=== PATIENT | male | born 1970 | race Two or more races ===

== ENCOUNTER 2020-10-16 09:53 | Outpatient (REF) | payer BC, SELFPAY ==
--- NOTE | ~2020-10-16 | XR_ITS ---
EXAMINATION: XR HAND, RIGHT XR HAND, LEFT CLINICAL INFORMATION: Right and left hand pain. COMPARISON: Right hand radiographs dated 02/08/2012 TECHNIQUE: AP, oblique, and lateral views of the right and left hand. FINDINGS: Right hand: No acute fracture or dislocation. Mild joint space narrowing with tiny marginal osteophytes at the 1st carpometacarpal joint as well as at the 3rd metacarpophalangeal joint and scattered throughout the interphalangeal joints. No osseous erosion. No abnormal soft tissue calcification. Left hand: No acute fracture or dislocation. Mild joint space narrowing with tiny marginal osteophytes at the 1st carpometacarpal joint as well as at the 2nd and 3rd metacarpophalangeal joints and scattered throughout the interphalangeal joints. No osseous erosion. No abnormal soft tissue calcification. XR/XR hand RT 2V IMPRESSION: Right hand: Mild degenerative arthritis at the 1st carpometacarpal joint, 3rd metacarpophalangeal joint, and scattered throughout the interphalangeal joints. Left hand: Mild degenerative arthritis at the 1st carpometacarpal joint, 2nd and 3rd metacarpophalangeal joints, and scattered throughout the interphalangeal joints.
--- NOTE | ~2020-10-16 | XR_ITS ---
EXAMINATION: XR HAND, RIGHT XR HAND, LEFT CLINICAL INFORMATION: Right and left hand pain. COMPARISON: Right hand radiographs dated 02/08/2012 TECHNIQUE: AP, oblique, and lateral views of the right and left hand. FINDINGS: Right hand: No acute fracture or dislocation. Mild joint space narrowing with tiny marginal osteophytes at the 1st carpometacarpal joint as well as at the 3rd metacarpophalangeal joint and scattered throughout the interphalangeal joints. No osseous erosion. No abnormal soft tissue calcification. Left hand: No acute fracture or dislocation. Mild joint space narrowing with tiny marginal osteophytes at the 1st carpometacarpal joint as well as at the 2nd and 3rd metacarpophalangeal joints and scattered throughout the interphalangeal joints. No osseous erosion. No abnormal soft tissue calcification. XR/XR hand LT 2V IMPRESSION: Right hand: Mild degenerative arthritis at the 1st carpometacarpal joint, 3rd metacarpophalangeal joint, and scattered throughout the interphalangeal joints. Left hand: Mild degenerative arthritis at the 1st carpometacarpal joint, 2nd and 3rd metacarpophalangeal joints, and scattered throughout the interphalangeal joints.
[2020-10-16 11:00] LABS: MANUAL DIFF FLAG NO
[2020-10-16 11:12] LABS: Basophils Absolute Auto 0.1 X10*3/uL (0.0-0.2); Basophils Percent Auto 0.8 % (0-2); Eosinophils Absolute Auto 0.2 X10*3/uL (0.0-0.4); Eosinophils Percent Auto 2.7 % (0-4); Hematocrit 42.7 % (42-52); Hemoglobin 14.1 g/dl (14.0-18.0); Imm Gran Abs Auto 0.08 X10*3/uL (0.00-0.03); Imm Gran Pct Auto 1.1 % (0.0-0.4); Lymphocytes Absolute Auto 2.9 X10*3/uL (1.2-4.9); Lymphocytes Percent Auto 38.1 % (20-40); Mean Corpuscular Hemoglobin 29.6 pg (27.0-33.0); Mean Corpuscular Volume 89.5 fL (80-98); Mean Platelet Volume 10.5 fL (9.4-12.4); Monocytes Absolute Auto 0.5 X10*3/uL (0.1-1.2); Monocytes Percent Auto 7.1 % (2-11); Neutrophils Absolute Auto 3.8 X10*3/uL (2.0-8.3); Neutrophils Percent Auto 50.2 % (45-73); Platelet Count 312 X10*3/uL (160-400); Red Blood Count 4.77 X10*6/uL (4.60-5.80); Red Cell Distribution Width 12.3 % (11.0-16.0); White Blood Count 7.5 X10*3/uL (4.8-10.8)
[2020-10-16 11:29] LABS: Alanine Aminotransferase 28 U/L (0-40); Albumin Level 4.3 g/dL (3.5-5.0); Alkaline Phosphatase 86 U/L (39-117); Anion Gap 11 (12-20); Aspartate Amino Transferase 18 U/L (5-37); Bilirubin Total 0.9 mg/dL (0.0-1.0); Blood Urea Nitrogen 16 mg/dL (9-16); Calcium 9.1 mg/dL (8.4-10.2); Carbon Dioxide 27 mmol/L (22-29); Chloride 106 mmol/L (96-108); Cholesterol 197 mg/dL; Estimated Glomerular Filt Rate > 60; Glucose Random 113 mg/dL (60-115); HDL Cholesterol 34 mg/dL; LDL Cholesterol Calculated 103 mg/dl; Potassium 4.5 mmol/L (3.3-5.1); Sodium 139 mmol/L (135-145); Total Protein 7.1 g/dL (6.5-8.0); Triglycerides 300 mg/dL
[2020-10-16 11:40] LABS: Estimated Average Glucose 105 mg/dL; Hemoglobin A1c % 5.3 %
[2020-10-16 11:54] LABS: Free T4 (Free Thyroxine) 0.81 ng/dL (0.71-1.85); Prostate Specific Antigen Scr 1.04 ng/mL (<0.05-4.0); Thyroid Stimulating Hormone 0.91 uIU/mL (0.32-4.0)
[2020-10-16 12:07] LABS: Folate 11.5 ng/mL (> or = 4.0); Vitamin B12 464 pg/mL (200-900)
== END 2020-10-16 09:54 | disposition home or self-care (01) ==
LOC: HO.XRAY 09:53
PROVIDERS: PCP Internal Medicine; Visit Provider Internal Medicine
DX: M79.641 Pain in right hand (principal); M79.642 Pain in left hand; E78.00 Pure hypercholesterolemia, unspecified; R73.02 Impaired glucose tolerance (oral)
CPT/HCPCS: 36415; 73120; 80053; 80061; 82607; 82746; 83036; 84153; 84439; 84443; 85025

== ENCOUNTER 2021-08-22 09:39 | Day surgery (SDC) | payer BC, SELFPAY ==
[2021-08-17 08:41] VITALS: BMI 27.9
--- NOTE | 2021-08-21 11:08 | HO.ANESPROP2 ---
Documented by User: Yisel Antonio NP 08/21/21 11:08 HPI - Anesthesia Eval Consult details Narrative: 51yo M for Colonoscopy PMFSH Active Problems Active Problems: All Active Problems (Updated 01/05/21 @ 14:42 by Brisa España MD) Osteoarthritis, hand (Acute) Annual physical exam (Acute) Colon cancer screening (Acute) Impaired glucose tolerance (Acute) Hypercholesterolemia (Acute) Insomnia (Acute) Overweight (BMI 25.0-29.9) (Acute) Anxiety (Acute) Past Medical History Medical History Anxiety Hypercholesterolemia Impaired glucose tolerance Insomnia Overweight (BMI 25.0-29.9) Family History Family History Father Prostate cancer Daughter Autism Social History Social History Housing: House Alcohol intake: current Alcohol intake frequency: does not drink Patient Tobacco Use Status: Never used Tobacco Second Hand Smoke Exposure: Yes Are you DNR?: No Advance Directives: No Advance Directives Information Provided: Yes service: No Current occupational status: employed Meds Allergies Allergy/AdvReac Type Severity Reaction Status Date / Time No Known Allergies Allergy Verified 01/05/21 14:14 Exam Exam Date and Time: August 21, 2021 1108 Height,Weight and Vital Signs: Height 5 ft 6 in Weight 78.471 kg Assessment and Plan Assessment Anesthesia Assessment: Chart Reviewed Documented by User: Nita Coffman MD 08/22/21 10:59 PMF Past Medical History Medical History Anxiety Hypercholesterolemia Impaired glucose tolerance Insomnia Overweight (BMI 25.0-29.9) Family History Family History Father Prostate cancer Daughter Autism Surgical History History of Problems with Anesthesia: No Social History Social History Housing: House Alcohol intake: current Alcohol intake frequency: does not drink Patient Tobacco Use Status: Never used Tobacco Second Hand Smoke Exposure: Yes Are you DNR?: No Advance Directives: No Advance Directives Information Provided: Yes service: No Current occupational status: employed Meds Allergies Allergy/AdvReac Type Severity Reaction Status Date / Time No Known Allergies Allergy Verified 01/05/21 14:14 Exam Airway Mallampati Class: II TM Dist: >3cm Neck ROM: Full Loose/Missing/Broken Teeth: No Heart: RRR Lungs: CTA Assessment and Plan Final Anesthetic Review History of Problems with Anesthesia: No NPO: Yes ASA Class: II Final Preanesthetic Review: Meds/Allgs Chart Reviewed, Consent Obtained/Reviewed and Anes Risks/Benef Reviewed Patient Risk: Low Procedure Risk: Low Anesthetic Plan Anesthetic Plan: MAC: Disposition: Standard PACU
[2021-08-22 10:21] VITALS: BP 135/87; PULSE 71; RESP 17; TEMP 36.2; O2SAT 98
[2021-08-22] MEDS: Lactated Ringers 1,000 ML 100 ML IVCONT (10:35)
[2021-08-22 12:21] VITALS: BP 98/57; PULSE 60; RESP 18; TEMP 36.7; O2SAT 98
--- NOTE | 2021-08-22 12:24 | PM.OP ---
Brief Operative Note Date of Service: 08/22/21 Pre-op diagnosis: Screening Post-op diagnosis: other (Rectal polyp) Procedure: Colonoscopy to the cecum and TI with Bx/Removal of polyp Surgeon: Faisal Carrillo Anesthesia: MAC Was an [employer] used for this Procedure?: No Estimated blood loss (mL): 2.0 Pathology: other (A. Rectal polyp) Condition: stable Disposition: PACU
[2021-08-22 12:36] VITALS: BP 117/89; PULSE 67; RESP 18; O2SAT 98
[2021-08-22 12:49] VITALS: BP 129/87; PULSE 60; RESP 18; TEMP 36.9; O2SAT 95
--- NOTE | 2021-08-22 13:50 | OP_ITS ---
SURGEON: Faisal Carrillo MD INDICATIONS: The patient presents for evaluation of colorectal cancer screening. Full consent was obtained from him for this, including risks of bleeding and perforation. PREOPERATIVE DIAGNOSIS: Colorectal cancer screening. POSTOPERATIVE DIAGNOSIS: PROCEDURE PERFORMED: Colonoscopy to the cecum and terminal ileum with biopsy and removal of polyp. ESTIMATED BLOOD LOSS: COMPLICATIONS: ANESTHESIA: Monitored anesthesia care. ASSISTANTS: SPECIMENS: POSTOPERATIVE DIAGNOSES: Colorectal cancer screening, small rectal polyp, mild sigmoid diverticulosis, small internal hemorrhoids. DESCRIPTION OF PROCEDURE: The patient was placed in the left lateral decubitus position. The digital rectal exam revealed no abnormalities. The Olympus video pediatric colonoscope was entered into the rectum and advanced easily to the cecum. Once in the cecum, I did identify normal-appearing cecal pouch, appendiceal orifice, and a normal-appearing ileocecal valve. The terminal ileum was cannulated and appeared normal. Scope was withdrawn back in the colon. The entire cecum and ileocecal valve appeared normal. The scope was slowly withdrawn assessing all mucosal surfaces carefully. Preparation was excellent. I did not visualize any sign of colitis or angiodysplasia. The only polyp I visualized was in the distal rectum seen in the retroflexed position. This was approximately 4 mm in diameter and was grossly adenomatous. This was biopsied and completely removed with cold biopsy forceps. There was a mild amount of sigmoid diverticulosis as well. There were internal hemorrhoids noted in the retroflexed position. The rectum otherwise appeared normal. The scope was straightened and withdrawn from the patient. He tolerated the procedure well and was returned to the recovery area in stable condition. IMPRESSION: 1. Small rectal polyp, status post biopsy removal. 2. Mild diverticulosis. 3. Small internal hemorrhoids. PLAN: The results of the biopsy will be checked. If this is a tubular adenoma, I would recommend a followup colonoscopy in 5 years. If it is only hyperplastic, I would then recommend a followup colonoscopy in 10 years instead. MD ERIKA Riggins/SATURNINOL / [phone]
== END 2021-08-22 13:44 | disposition home or self-care (01) ==
PROVIDERS: PCP Internal Medicine; Visit Provider Internal Medicine
PROC: 0DJD8ZZ Inspection of Lower Intestinal Tract, Via Natural or Artificial Opening Endoscopic (ICD-10-PCS; CPT 45378; principal; 2021-08-22 11:30)
DX: Z12.11 Encounter for screening for malignant neoplasm of colon (principal); D12.8 Benign neoplasm of rectum; K57.30 Diverticulosis of large intestine without perforation or abscess without bleeding; K64.8 Other hemorrhoids
CPT/HCPCS: 45380; 88305

== ENCOUNTER 2025-06-21 15:38 | Outpatient (AMB) | payer OTHER, SELFPAY ==
[2025-06-21 16:00] VITALS: BP 118/72; PULSE 63; RESP 18; O2SAT 98; BMI 28.4
--- NOTE | 2025-06-21 16:00 | A.OFFPC_ITS ---
Vital Signs 06/21/25 16:00 Height 5 ft 6 in Weight 176 lb 4 oz BMI 28.4 BP 118/72 Blood Pressure Location Lt brachial Position Sitting Respiration 18 Pulse 63 Pulse Source Pulse Oximeter Temp Source Temporal Artery Scan Pulse Oximetry (%) 98 Oxygen Delivery Method Room Air Intake Visit Reasons: [place] Television Writer Required: No Accompanied by: Self / Same As Patient Allergies No Known Allergies Allergy (Verified 06/21/25 16:27) Medication List - Last Reconciled 06/21/25 by PRISCILA Morris No Known Home Meds Tobacco use date assessed: 06/21/25 Dental Screening Dental Screen Date: 06/21/25 Did you have a dental visit in the last 12 months?: No Did you have a dental problem in the last 6 months where you did not have access to dental care?: No Was dental information given to patient?: No HPI [place] HPI Details Previous PCP: Last visit: 2020 Last PE: 2020 Specialist: no OBGYN: Past medical history: hld, IFG, insomnia, osteoarthritis hand, anxiety Medications: Family HX: Problem: The patient is a 55 year old male presenting to [facility] and for a general health check-up. His last visit was in 2020, and he had a lapse in healthcare coverage due to a previous job. He has a history of arthritis in his hands, which causes his fingers to lock intermittently. He has tried aspirin cream but still experiences symptoms, which he feels are worsening over time. 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 The patient reports occasional difficulty falling asleep, though once asleep, he is fine. He sometimes listens to rain sounds to relax but has not tried melatonin. He admits to sometimes eating before bedtime. Past medical history is notable for hypercholesterolemia, anxiety, and asthma. The asthma symptoms he experienced around the time of COVID have since resolved. He underwent a colonoscopy less than five years ago, where a small polyp was found and removed. He is supposed to follow up in 5 or 10 years but is unsure of the exact interval. His anxiety is situational, related to work being slow and the pressures of being a provider for his family. Health Maintenance - Colonoscopy: Patient had a colonoscopy less than 5 years ago where a small polyp was removed. - He was advised to follow-up and will c heck if the recommended interval is 5 or 10 years. - Immunizations: Patient has received th ree COVID-19 vaccines. - He states his Tetanus vaccination is u p to date, received within the last 10 years. - He denies receiving the flu vaccine. - Labs: Will be sent for baseline labs i ncluding cholesterol, thyroid function, kidney function, liver function, PSA, and A1c. 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 - He previously had a job without health care, which prompted him to return to his old job. - Substance Use: He denies smoking. - He drinks alcohol socially, about 3 be ers in a sitting on occasion, like a Friday. - Nutrition: Patient sometimes eats clos e to bedtime. [facility] Medical History Impaired glucose tolerance Hypercholesterolemia Insomnia Overweight (BMI 25.0-29.9) Anxiety Family History Father Prostate cancer Daughter Autism Social History Housing: House Alcohol intake: current Alcohol intake frequency: does not drink Patient Tobacco Use Status: Never used Tobacco Second Hand Smoke Exposure: Yes service: No Current occupational status: employed Questionnaire PHQ-9 Over the last 2 weeks, how often have you been bothered by any of the following problems? 1. Little interest or pleasure in doing things: more than half the days 2. Feeling down, depressed, or hopeless: several days 3. Trouble falling or staying asleep, or sleeping too much: several days 4. Feeling tired or having little energy: several days 5. Poor appetite or overeating: several days 6. Feeling bad about yourself - or that you are a failure or have let yourself or your family down: not at all 7. Trouble concentrating on things, such as reading the newspaper or watching television: not at all 8. Moving or speaking so slowly that other people could have noticed. Or the opposite - being so fidgety or restless that you have been moving around a lot more than usual: not at all 9. Thoughts that you would be better off or of hurting yourself in some way: not at all Total score: 6 Depression Screening Interpretation: Positive Depression Screening Done: Yes 25884 - PHQ-9 Billing: Yes Source: Developed by Drs. Faisal Dorado, Cheri Holm, Ivan Coy and colleagues, with an educational rosie from [employer]. Thrive Questionnaire Date Thrive assessed: 06/21/25 I am a: Patient What is your living situation today?: I have a steady place to live Within the past 12 months, did the food you bought not last and you didn't have the money to get more?: Never true Within the past 12 months, did you worry whether your food would run out before you got money to buy more?: Never true Do you have trouble paying for medicines?: No Do you have trouble getting transportation to medical appointments?: No Do you have trouble paying your heating and electricity bill?: No Do you have trouble taking care of your child, family member or friend?: No Do you have trouble with day-to-day activities such as bathing, preparing meals, shopping, managing finances, etc.?: No Are you currently unemployed and looking for a job?: Yes Are you interested in more education?: No Please select the resources that you would like help with: None Currently or been in a relationship where the following occur: No concerns reported THRIVE Score: 0 AUDIT C Alcohol Use Questionnaire (AUDIT-C) 1. How often do you have a drink containing alcohol?: Monthly or less 2. How many drinks containing alcohol do you have on a typical day when you are drinking?: 3 or 4 3. How often do you have six or more drinks on one occasion?: Never Total Score: 2 WARREN-7 AMB Questionnaire WARREN-7 Date WARREN - 7 assessed: 06/21/25 Feeling nervous, anxious, or on edge: 0 = Not at all Not being able to stop or control worryin = Not at all Worrying too much about different things: 1 = Several days Trouble relaxin = Not at all Being so restless that it is hard to sit still: 0 = Not at all Becoming easily annoyed or irritable: 0 = Not at all Feeling afraid as if something awful might happen: 0 = Not at all Total WARREN-7 score (0-4 normal; 5-9 mild; 10-14 moderate; 15-21 severe): 1 Source: Developed by Drs. Faisal Dorado, Cheri Holm, Ivan Coy and colleagues, with an educational rosie from [employer]. WARREN-7 Assessment Billing WARREN-7 Assessment Tool: WARREN-7 Assessment 16583 Review of Systems Narrative Review of Systems - Constitutional: Denies dizziness. - Respiratory: Denies shortness of breath. - Cardiovascular: Denies chest pain and heart palpitations. - Gastrointestinal: Reports perfect digestion. - Denies abdominal pain, constipation, diarrhea, or hematochezia. - Genitourinary: Denies nocturia. - Musculoskeletal: Reports arthritis in his hands with intermittent finger locking. - Reports general body stiffness, particularly after work. - Denies pain in other joints and calves. - Neurological: Reports numbness in both hands at times. - Psychiatric: Reports occasional anxiety, especially when work is slow. - Sleep: Reports intermittent difficulty initiating sleep. Const Reports difficulty sleeping and Denies headache(s) Eyes Denies loss of vision ENT Denies vertigo, Denies dizziness, Denies headache(s) and Denies sore throat Card Denies chest pain, Denies leg edema and Denies lightheadedness Resp Denies cough, Denies hemoptysis and Denies wheezing GI Denies abdominal pain, Denies melena, Denies constipation, Denies diarrhea and Denies vomiting Denies dysuria, Denies urinary frequency and Denies urinary urgency Musc Reports arthralgias (Bilateral hands), Denies joint swelling, Denies numbness, Reports stiffness (Bilateral hands) and Denies tingling Neuro Denies Abnormal speech present, Denies behavioral changes, Denies vertigo, Denies dizziness, Denies headache(s), Denies loss of vision, Denies memory loss, Denies numbness and Denies tingling Psych Denies anxiety, Denies behavioral changes, Denies depression, Denies memory loss and Denies panic attacks Carmine/Lymph Denies easy bleeding and Denies easy bruising Aller/Immun Denies wheezing Physical exam (Primary Care) Vital Signs: Last Vital Signs Pulse 63 06/21/25 16:00 Resp 18 06/21/25 16:00 BP 118/72 06/21/25 16:00 Pulse Ox 98 06/21/25 16:00 Oxygen Delivery Method Room Air 06/21/25 16:00 BMI result Body Mass Index 28.4 Tobacco/Smoking Status: Tobacco use Status Tobacco use date assessed 06/21/25 06/21/25 16:15 Patient Tobacco Use Status Never used Tobacco 06/21/25 16:15 PHQ-9: PHQ-9 Score PHQ-9: Total score 6 06/21/25 16:15 Depression Screening Interpretation: Positive Thrive Assessment: Date of Thrive Assessment Date Thrive assessed 06/21/25 06/21/25 16:15 Currently or been in a relationship where the following occur: No concerns reported Narrative Physical Exam - General: Patient appears well. - Respiratory: Lungs are clear to auscultation bilaterally. - Musculoskeletal: Examination of hands performed with motor transport inspector strength testing. - No calf tenderness noted. Const General: healthy appearing, no acute distress, alert and awake Nutritional Appearance: well nourished Orientation/consciousness: oriented to person, oriented to place and oriented to time HENMT Ears: TM's normal bilaterally General nose exam: Normal nasal mucous membranes and turbinates present Eyes Conjunctivae: conjunctivae normal Sclerae: sclerae normal Pupils: Equal, round and reactive pupils present Neck Neck: Yes no lymphadenopathy and Yes no JVD Thyroid: Thyroid normal Carotids: no bruits Resp Effort & Inspection: normal respiratory effort and not tachypneic Auscultation: no crackles, no rales, no rhonchi and no wheezes Cardio Rate: regular rate Rhythm: regular rhythm Heart sounds: no murmurs and normal S1 and S2 GI Palpation (GI): Soft to palpation, nontender, no hepatomegaly and no splenomegaly Auscultation: normal bowel sounds General: Yes no CVA tenderness Back/Spine/Pelvis Back: no CVA tenderness Skin General skin exam: no rashes or lesions noted and dry skin Neuro General: oriented to person, oriented to place and oriented to time Cranial nerves: Yes Equal, round and reactive pupils present Speech: No Abnormal speech present Gait exam (Neuro): Normal gait present Motor exam (neuro): no tremor noted Extrem Right upper extremity: full ROM and Extremity exam: right hand Details: no tenderness and no swelling Left upper extremity: full ROM and hand Details: no tenderness and no swelling Right lower extremity: full ROM; no edema Left lower extremity: full ROM; no edema Psych Mental Status: mental status grossly normal Speech and movement: Normal speech and movement present Affect: normal affect Attitude: cooperative Thought process: Normal thought process present Coding Level of Care Code New Pt Level 4 (63090) Diagnoses Encounter to establish care with new provider Z76.89 Anxiety F41.9 Hypercholesterolemia E78.00 Impaired glucose tolerance R73.02 Overweight (BMI 25.0-29.9) E66.3 Insomnia, unspecified type G47.00 Insomnia type: unspecified Primary osteoarthritis of both hands M19.041; M19.042 Osteoarthritis type: primary Laterality: bilateral Additional Codes PHQ-9 - 73522 - PHQ-9 Billing: Yes ([id number]) WARREN-7 Assessment Billing - WARREN-7 Assessment Tool: WARREN-7 Assessment 35560 ([id number]) Time Spent (min) 38 Assessment & Plan Assessment & Plan (1) Encounter to establish care with new provider: Code(s): Z76.89 - Persons encountering health services in other specified circumstances Category: Medical Plan: The patient presents to re-establish primary care after a lapse in health insurance. A panel of labs will be ordered to establish a baseline, including a lipid panel, thyroid panel, renal function, liver function, A1c, and a PSA. The patient was instructed to abstain from sexual intercourse for 24 hours prior to the PSA blood draw. A follow-up visit is scheduled in seven weeks to review the results. A work note will be provided as requested. (2) Anxiety: Code(s): F41.9 - Anxiety disorder, unspecified Category: Medical Plan: Encouraged CBT Intermittent anxiety when worrying about providing for his family; generally feels like he is doing okay and has been coping Denies SI/HI (3) Hypercholesterolemia: Code(s): E78.00 - Pure hypercholesterolemia, unspecified Category: Medical Plan: History of high cholesterol Reinforced low-cholesterol diet and activity as tolerated We will order lipid panel to further evaluate (4) Impaired glucose tolerance: Code(s): R73.02 - Impaired glucose tolerance (oral) Category: Medical Plan: History of impaired glucose tolerance Reinforced low sugar/carbohydrate diet Fasting glucose and A1c order to further evaluate (5) Overweight (BMI 25.0-29.9): Code(s): E66.3 - Overweight Category: Medical Plan: Discussed lifestyle modifications including dietary changes and physical activity (6) Insomnia: Code(s): G47.00 - Insomnia, unspecified Category: Medical Qualifiers: Insomnia type: unspecified Qualified Code(s): G47.00 - Insomnia, unspecified Plan: The patient reports occasional difficulty falling asleep. Recommended trying [id number] melatonin. Advised to avoid eating for at least three hours before bedtime, as it takes the body about 2.5 hours to digest food. Sleep hygiene: Exercise regularly, but not within 4 hour of bedtime. Limit fluid intake and avoid large meals in the evening hours. Limit overall caffeine, tobacco, and alcohol intake; no night cap. Maintain a regular sleep- wake cycle without naps in the daytime. Lie down to sleep only when feeling sleepy; leave the bed if unable to fall asleep within 20 minutes; stay in bed for only the hours actually sleeping(but not less than 5 hour in 24 hours). (7) Osteoarthritis, hand: Code(s): M19.049 - Primary osteoarthritis, unspecified hand Category: Medical Qualifiers: Osteoarthritis type: primary Laterality: bilateral Qualified Code(s): M19.041 - Primary osteoarthritis, right hand; M19.042 - Primary osteoarthritis, left hand Plan: Bilateral hand X-rays on October 16, 2020 shows mild degenerative arthritis of both hands at the for his carpometacarpal joint, 3rd metacarpophalangeal joint and scattered throughout the interphalangeal joints. Continue and exercises and topical NSAIDs as needed Plan Plan Patient was informed and verbally consented to the use of an ambient scribe for clinic note documentation during this visit. 1. General Medical Examination The patient presents to re-establish primary care after a lapse in health insurance. A panel of labs will be ordered to establish a baseline, including a lipid panel, thyroid panel, renal function, liver function, A1c, and a PSA. The patient was instructed to abstain from sexual intercourse for 24 hours prior to the PSA blood draw. A follow-up visit is scheduled in seven weeks to review the results. A work note will be provided as requested. 2. Insomnia The patient reports occasional difficulty falling asleep. Recommended trying [id number] melatonin. Advised to avoid eating for at least three hours before bedtime, as it takes the body about 2.5 hours to digest food. 3. 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 He will continue to manage his symptoms. 4. Screening For Malignant Neoplasm Of Colon The patient had a colonoscopy less than five years ago where a small polyp was removed. He was advised to contact his fire assistant's office to confirm if his next recommended colonoscopy is in 5 or 10 years, noting that a 5-year int erval is common after polyp removal. Discussion Notes I discussed the plan to re-establish care, which includes obtaining comprehensive baseline labs. I advised the patient on specific instructions for the PSA test, which requires abstaining from sexual activity for 24 hours prior to the blood draw as it can elevate the result. Regarding his difficulty sleeping, we discussed sleep hygiene measures, specifically avoiding eating within three hours of bedtime, as it takes about two and a half hours for food to digest. I also suggested he could try [id number] melatonin as a natural aid. We reviewed his health maintenance, noting the importance of confirming the follow-up interval for his next colonoscopy with his fire assistant, as it is often sooner when polyps have been removed. I scheduled a follow-up appointment in seven weeks to review all the lab results together and formulate a further plan. I agreed to provide a note for his employer confirming his visit. Patient Instructions - Please go for blood work as discussed. - This will check your cholesterol, thyroid, kidney and liver function, blood sugar (A1c), and prostate health (PSA). - Do not have any sexual intercourse for 24 hours before your blood test for the PSA. - For difficulty sleeping, you can try [id number] melatonin. - Avoid eating for at least 3 hours before you go to bed. - Contact your specialist's office to find out when you are due for your next colonoscopy. - Follow up in the office in 7 weeks to review your lab results. Orders: Orders Complete Blood Count Auto Diff Today E66.3 - Overweight, E78.00 - Pure hypercholesterolemia, unspecified, F41.9 - Anxiety disorder, unspecified, G47.00 - Insomnia, unspecified, M19.041 - Primary osteoarthritis, right hand, M19.042 - Primary osteoarthritis, left hand, R73.02 - Impaired glucose tolerance (oral), Z00.00 - Encounter for general adult medical examination without abnormal findings Comprehensive [place]. Panel Fast Today E66.3 - Overweight, E78.00 - Pure hypercholesterolemia, unspecified, F41.9 - Anxiety disorder, unspecified, G47.00 - Insomnia, unspecified, M19.041 - Primary osteoarthritis, right hand, M19.042 - Primary osteoarthritis, left hand, R73.02 - Impaired glucose tolerance (oral), Z00.00 - Encounter for general adult medical examination without abnormal findings Lipid Panel Today E66.3 - Overweight, E78.00 - Pure hypercholesterolemia, unspecified, F41.9 - Anxiety disorder, unspecified, G47.00 - Insomnia, unspecified, M19.041 - Primary osteoarthritis, right hand, M19.042 - Primary osteoarthritis, left hand, R73.02 - Impaired glucose tolerance (oral), Z00.00 - Encounter for general adult medical examination without abnormal findings TSH reflex Free T4 Today E66.3 - Overweight, E78.00 - Pure hypercholesterolemia, unspecified, F41.9 - Anxiety disorder, unspecified, G47.00 - Insomnia, unspecified, M19.041 - Primary osteoarthritis, right hand, M19.042 - Primary osteoarthritis, left hand, R73.02 - Impaired glucose tolerance (oral), Z00.00 - Encounter for general adult medical examination without abnormal findings UA CC w/rflx Micro + Cult Today E66.3 - Overweight, E78.00 - Pure hypercholesterolemia, unspecified, F41.9 - Anxiety disorder, unspecified, G47.00 - Insomnia, unspecified, M19.041 - Primary osteoarthritis, right hand, M19.042 - Primary osteoarthritis, left hand, R73.02 - Impaired glucose tolerance (oral), Z00.00 - Encounter for general adult medical examination without abnormal findings PSA,Total (Free>4and<10) Today E66.3 - Overweight, E78.00 - Pure hypercholesterolemia, unspecified, F41.9 - Anxiety disorder, unspecified, G47.00 - Insomnia, unspecified, M19.041 - Primary osteoarthritis, right hand, M19.042 - Primary osteoarthritis, left hand, R73.02 - Impaired glucose tolerance (oral), Z00.00 - Encounter for general adult medical examination without abnormal findings Vitamin D 25-OH Total Today E66.3 - Overweight, E78.00 - Pure hypercholesterolemia, unspecified, F41.9 - Anxiety disorder, unspecified, G47.00 - Insomnia, unspecified, M19.041 - Primary osteoarthritis, right hand, M19.042 - Primary osteoarthritis, left hand, R73.02 - Impaired glucose tolerance (oral), Z00.00 - Encounter for general adult medical examination without abnormal findings Hemoglobin A1c Today E66.3 - Overweight, E78.00 - Pure hypercholesterolemia, unspecified, F41.9 - Anxiety disorder, unspecified, G47.00 - Insomnia, unspecified, M19.041 - Primary osteoarthritis, right hand, M19.042 - Primary osteoarthritis, left hand, R73.02 - Impaired glucose tolerance (oral), Z00.00 - Encounter for general adult medical examination without abnormal findings Patient Instructions: Patient to return in 7 weeks for complete physical and lab review
--- OUTSIDE RECORDS SUMMARY | 2025-06-21 22:21 | XMS_ITS | Patient Health Record ---
Author Organization [facility] [place] Address [address] [place] [id number] Care Team Providers Care Utility Worker Production Name Role Phone Po Brisa MONZON Primary Care Provider Faisal Aldridge [phone] Allergies No Known Allergies Reason For Referral No Information Immunizations Vaccine Route Administration Date Status Comme nts Influenza Unknown 07/24/2021 Refused Social History Tobacco Use: Social History Observation Description Date Details (start date - stop date) Never Smoker NA - NA Social History Drugs/Alcohol: Social Info Question Answer Notes Alcohol Screen Did you have a drink containing alcohol in the past year? Yes How often did you have a drink containing alcohol in the past year? 2 to 4 times a month (2 points) How many drinks did you have on a typical day when you were drinking in the past year? 1 or 2 drinks (0 point) How often did you have 6 or more drinks on one occasion in the past year? 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 [employer] Section Notes: Nonsmoker; no sig alcohol Problems Problem Type SNOMED Code ICD Code Onset Dates Problem Status W/U Status Risk Notes Problem Screening for malignant neoplasm of colon (231064454) Encounter for screening for malignant neoplasm of colon (Z12.11) Active confirmed Problem Preprocedural examination (065513463243814) Preprocedural examination (Z01.818) Active confirmed Problem Diverticulosis of colon (609356523) Diverticulosis of colon (K57.30) Active confirmed Plan Of Treatment Future Test Test Name Order Date COLONOSCOPY 07/24/2021 Insurance Providers Payer Name Payer Address Payer Phone Subscriber Number Group Number Insured Name Patient Relationship to Insured Coverage Start Date Coverage End Date [facility] [address] [place] [address] [id number] PRASAD DURAND Self - patient is the insured Medical (General) History Medical History History ICD Code Denies UT,DM,CVA,Lung disease,renal dise ase Surgical History Surgery Date(Month/Year)
== END 2025-06-21 16:46 | disposition home or self-care (01) ==
LOC: HO.HMCH 15:39
DX: Z76.89 Persons encountering health services in other specified circumstances (principal); F41.9 Anxiety disorder, unspecified; E78.00 Pure hypercholesterolemia, unspecified; R73.02 Impaired glucose tolerance (oral); E66.3 Overweight; G47.00 Insomnia, unspecified; M19.041 Primary osteoarthritis, right hand; M19.042 Primary osteoarthritis, left hand

== ENCOUNTER → 2025-06-21 15:38 | Outpatient (BNVA) | payer OTHER, SELFPAY | DX: Z00.00 Encounter for general adult medical examination without abnormal findings (principal); E78.00 Pure hypercholesterolemia, unspecified; J45.909 Unspecified asthma, uncomplicated; F41.9 Anxiety disorder, unspecified; R73.02 Impaired glucose tolerance (oral); E66.3 Overweight; G47.00 Insomnia, unspecified; M19.041 Primary osteoarthritis, right hand; M19.042 Primary osteoarthritis, left hand; Z76.89 Persons encountering health services in other specified circumstances; Z68.28 Body mass index [BMI] 28.0-28.9, adult | CPT/HCPCS: 96127 ==